=== PATIENT | male | born 1980 | race Two or more races ===

== ENCOUNTER 2024-08-21 08:29 | Emergency (ER) | payer OTHER ==
[~2024-08-21] VITALS: Ht 190.5 cm; Wt 114.0 kg
[2024-08-21 09:17] LABS: BASOPHILS 0.6 % (0.2-1.2); EOSINOPHILS 1.6 % (0.8-7.0); LYMPHOCYTES 13.6 % (21.8-53.1); MCH 30.5 PG (25.7-32.2); MCHC 34.2 g/dL (32.3-36.5); MCV 89.2 fL (79.0-92.2); MONOCYTES 6.5 % (5.3-12.2); NEUTROPHILS 77.1 % (34.0-67.9); RBC 4.91 M/uL (4.63-6.08)
[2024-08-21 09:28] LABS: INR 1.06 (0.80-1.30); PROTIME 13.4 Sec (11.2-14.2)
[2024-08-21 09:28] LABS: BLOOD/HGB, URINE NEGATIVE (Negative); KETONE, URINE NEGATIVE (Negative); LEUK ESTERASE, URINE NEGATIVE (negative); NITRITE, URINE NEGATIVE (negative)
[2024-08-21 09:33] LABS: ALCOHOL, MEDICAL <3 ng/dL (<3); ALT (SGPT) 31 U/L (14-59); AST (SGOT) 20 U/L (15-37); GLOMERULAR FILTRATION RATE,EST 84 mL/min (>60); PROTEIN, TOTAL 7.3 g/dL (6.4-8.2); UREA NITROGEN 13 mg/dL (7-18)
[2024-08-21 09:44] LABS: AMPHETAMINES, URINE POSITIVE (NEGATIVE); BARBITURATES, URINE NEGATIVE (NEGATIVE); BENZODIAZEPINE, URINE NEGATIVE (NEGATIVE); CANNABINOID, URINE NEGATIVE (NEGATIVE); COCAINE, URINE NEGATIVE (NEGATIVE); ECSTASY, URINE NEGATIVE (NEGATIVE); FENTANYL, URINE NEGATIVE (NEGATIVE); METHADONE, URINE NEGATIVE (NEGATIVE); OPIATES, URINE NEGATIVE (NEGATIVE); OXYCODONE, URINE NEGATIVE (NEGATIVE); PHENCYCLIDINE, URINE NEGATIVE (NEGATIVE)
[2024-08-21 11:10] VITALS: BP 139/87
== END 2024-08-21 11:10 | disposition other institution, planned readmission (95) ==
LOC: ED 08:29
PROVIDERS: Emergency Medicine
DX: F15.129 Other stimulant abuse with intoxication, unspecified (principal); I10 Essential (primary) hypertension
CPT/HCPCS: 36415; 74177; 80053; 80307; 81003; 85025; 85610; 99284-25; G0480; Q9967